=== PATIENT | female | born 1995 | race Asian ===

== ENCOUNTER 2024-05-25 23:26 | Emergency (ER) | payer BC ==
[2024-05-25 23:33] VITALS: BP 125/68; PULSE 71; RESP 18; TEMP 98.8; BMI 27.9
[2024-05-26] MEDS ORDERED: KETOROLAC TROMETHAMINE 15 MG/ML VIAL ONE (00:25)
[2024-05-26] MEDS: KETOROLAC TROMETHAMINE 15 MG/ML VIAL IVPUSH ONE (00:38)
[2024-05-26 00:42] LABS: BASO % 0.2 % (0-2.0); EOS % 1.1 % (0-4.5); HEMATOCRIT 39.8 % (32.4-45.2); HEMOGLOBIN 13.2 GM/dL (10.7-15.3); MCH 28.7 pg (25.7-33.7); MCHC 33.3 g/dl (32.0-36.0); MEAN CELL VOLUME 86.2 fl (80-96); MEAN PLT VOLUME 10.6 fl (7.5-11.1); MONO % 5.2 % (3.8-10.2); NEUT % 86.5 % (42.8-82.8); PLATELET COUNT 159 10^3/uL (134-434); RBC 4.62 M/mm3 (3.60-5.2); RDW 13.5 % (11.6-15.6); WHITE BLOOD COUNT 13.1 K/mm3 (4.0-10.0)
[2024-05-26 01:06] LABS: POTASSIUM 4.2 mmol/L (3.5-5.1)
[2024-05-26 01:08] LABS: BLOOD UREA NITROGEN 9.1 mg/dL (7-18); CALCIUM 8.8 mg/dL (8.5-10.1)
[2024-05-26 01:12] LABS: CREATININE 0.6 mg/dL (0.55-1.3)
[2024-05-26 01:13] LABS: BILIRUBIN,TOTAL 0.6 mg/dL (0.2-1); TOT PROT 7.3 g/dl (6.4-8.2)
[2024-05-26] MEDS ORDERED: ACETAMINOPHEN INJECTION 100 ML ONE (02:08)
[2024-05-26] MEDS: ACETAMINOPHEN 1000 MG/100 ML BAG IVPB ONE (02:08)
[2024-05-26 02:58] LABS: INR 1.08 (0.83-1.09); PROTHROMBIN TIME (PATIENT) 11.9 SEC (9.7-13.0)
== END 2024-05-26 02:30 | disposition home or self-care (01) ==
LOC: JER 23:26
PROC: 3E0333Z Introduction of Anti-inflammatory into Peripheral Vein, Percutaneous Approach (ICD-10-PCS; principal; 2024-05-26)
DX: N93.8 Other specified abnormal uterine and vaginal bleeding (principal)
CPT/HCPCS: 36415; 80053; 84702; 85025; 85610; 85730; 86850; 86900; 86901; 99284-25; J0131

== ENCOUNTER 2024-05-29 08:15 | Day surgery (SDC) | payer BC ==
[2024-05-29] MEDS ORDERED: ACETAMINOPHEN INJECTION 100 ML ONE (11:37)
[2024-05-29] MEDS ORDERED: ONDANSETRON 4 MG/2 ML VIAL ONE (11:39)
[2024-05-29] MEDS ORDERED: KETOROLAC TROMETHAMINE 30 MG/1 ML VIAL ONE (11:39)
[2024-05-29] MEDS ORDERED: LIDOCAINE HCL/PF 2% SDV 5ML VIAL ONE (11:39)
[2024-05-29] MEDS ORDERED: DEXAMETHASONE SOD PHOSPHATE 4 MG/1 ML VIAL ONE (11:39)
[2024-05-29] MEDS ORDERED: MIDAZOLAM HCL 2 MG/2 ML SINGLE DOSE VIAL ONE (11:41)
[2024-05-29] MEDS ORDERED: PROPOFOL 20 ML ONE (11:42)
[2024-05-29] MEDS ORDERED: ceFAZolin SODIUM 1 GM VIAL ONE (11:49)
[2024-05-29] MEDS: ceFAZolin SODIUM 1 GM VIAL IVPB ONE (11:50)
[2024-05-29 12:21] LABS: BASO % 0.4 % (0-2.0); EOS % 1.9 % (0-4.5); HEMATOCRIT 39.1 % (32.4-45.2); HEMOGLOBIN 13.2 GM/dL (10.7-15.3); LYMPH % 14.3 % (8-40); MCH 29.3 pg (25.7-33.7); MCHC 33.7 g/dl (32.0-36.0); MEAN CELL VOLUME 86.9 fl (80-96); MEAN PLT VOLUME 11.3 fl (7.5-11.1); MONO % 6.9 % (3.8-10.2); NEUT % 76.5 % (42.8-82.8); PLATELET COUNT 157 10^3/uL (134-434); RDW 13.3 % (11.6-15.6); WHITE BLOOD COUNT 7.5 K/mm3 (4.0-10.0)
[2024-05-29 12:23] LABS: INR 1.03 (0.83-1.09); PROTHROMBIN TIME (PATIENT) 11.3 SEC (9.7-13.0)
[2024-05-29 12:26] LABS: ACTIVATED PTT 36.9 SECONDS (25.2-36.5)
[2024-05-29] MEDS ORDERED: ONDANSETRON 4 MG/2 ML VIAL IVPUSH PRN ×2 (12:32→13:53)
[2024-05-29 12:39] LABS: POTASSIUM 4.1 mmol/L (3.5-5.1)
[2024-05-29 12:41] LABS: ALBUMIN 4.1 g/dl (3.4-5.0); BLOOD UREA NITROGEN 14.9 mg/dL (7-18); CALCIUM 9.4 mg/dL (8.5-10.1)
[2024-05-29 12:44] LABS: CREATININE 0.6 mg/dL (0.55-1.3)
[2024-05-29 12:45] LABS: TOT PROT 7.3 g/dl (6.4-8.2)
[2024-05-29] MEDS ORDERED: LACTATED RINGERS SOLUTION 1,000 ML IV SCH (12:45)
[2024-05-29 12:47] LABS: BILIRUBIN,TOTAL 0.6 mg/dL (0.2-1)
[2024-05-29 13:09] VITALS: BMI 23.2
[2024-05-29 13:38] VITALS: RESP 18
[2024-05-29] MEDS ORDERED: oxyCODONE HCL 5 MG TABLET ONE (13:43)
[2024-05-29] MEDS: oxyCODONE HCL 5 MG TABLET PO PRN (13:48)
[2024-05-29] MEDS ORDERED: IBUPROFEN 600 MG TABLET (FP) PO PRN (13:53)
[2024-05-29] MEDS ORDERED: IBUPROFEN 800 MG/8 ML IJ IVPB PRN (13:53)
[2024-05-29] MEDS ORDERED: oxyCODONE HCL 5 MG TABLET PO PRN (13:53)
[2024-05-29 14:00] VITALS: BP 112/64; PULSE 58; TEMP 97.7
[2024-05-29] MEDS ORDERED: ELECTROLYTE-148 SOLN 1,000 ML IV SCH (14:00)
== END 2024-05-29 14:33 | disposition home or self-care (01) ==
LOC: JASU-SURG 08:15
PROVIDERS: ATTEND Obstetrics & Gynecology
PROC: 10D17ZZ Extraction of Products of Conception, Retained, Via Natural or Artificial Opening (ICD-10-PCS; principal; 2024-05-29 11:00)
DX: O03.4 Incomplete spontaneous abortion without complication (principal)
CPT/HCPCS: 36415; 80053; 85025; 85610; 85730; 88305-TC; 94760; J0131